=== PATIENT | male | born 1955 | race Caucasian/White ===

== ENCOUNTER 2023-12-07 10:10 | Outpatient (AMB) | payer MEDICARE, SELFPAY ==
--- NOTE | 2023-12-07 10:55 | AM.OFFWIN_ITS ---
Intake Vital Signs 12/07/23 10:56 Height 5 ft 11 in Weight 155 lb BMI 21.6 BP 118/70 Blood Pressure Location Lt brachial Position Sitting Pulse 69 Pulse Source Pulse Oximeter Temp 98.1 F Temp Source Oral Pulse Oximetry (%) 97 Oxygen Delivery Method Room Air Intake Visit Reasons: EP- Rash on both hands Intake Note: pt c/o bilateral hand rash x 3weeks. After working on [employer] pulling weeds Patient Tobacco Use Status: Never used Tobacco Allergies No Known Allergies Allergy (Verified 12/07/23 11:01) Do you need a note to return to daycare/school/sports/work: No HPI HPI Comments History of Present Illness Details Patient is a 68-year-old male complaining of bilateral rash on hands with itching. He states he was waiting a couple of weeks ago and believes he contracted poison [place]ac. He states it is very itchy and he has used a variety of things on it to try to make it feel better but nothing seems to work. His hands have gotten dry and scaly and he has several scabs from the itching. His hands are also a little bit swollen more than normal. He denies any fevers [facility] Social History Patient Tobacco Use Status: Never used Tobacco Review of Systems Const All systems reviewed & are unremarkable except as noted in HPI and below Physical Exam Vital Signs: Last Vital Signs Temp 98.1 F 12/07/23 10:56 Pulse 69 12/07/23 10:56 BP 118/70 12/07/23 10:56 Pulse Ox 97 12/07/23 10:56 Oxygen Delivery Method Room Air 12/07/23 10:56 BMI result Body Mass Index 21.6 Const General: cooperative, healthy appearing, comfortable and no acute distress Orientation/consciousness: patient oriented x3 Limitations: no limitations HEENT Head: Yes normal to inspection Eyes General: appearance normal, both eyes and all related structures Resp Effort & Inspection: normal respiratory effort and able to speak in complete sentences Skin Other: maculopapular rash with crusted lesions on bilateral hands with some nonpitting edema Neuro General: patient oriented x3 Assessment & Plan Assessment & Plan (1) Allergic dermatitis: Code(s): L23.9 - Allergic contact dermatitis, unspecified cause Plan: Sent prednisone taper to pharmacy, reviewed risks and benefits of medication, also sent hydroxyzine as needed for itching. Plan See above Medications: New prednisone On days 1&2, take 3 tablets with breakfast. On days 3&4 take 2 tablets with breakfast, on days 5&6 take 1.5 tablets with breakfast, on days 7&8 take 1 tablet with breakfast, on days 9&10 take 0.5 tablet with breakfast. 20 mg PO DAILY 16 tabs 0RF hydroxyzine HCl 10 mg PO Q6-8H PRN 7 tabs 0RF itching Coding Level of Care Code New Pt Level 3 (60931) Diagnoses Allergic dermatitis L23.9
[2023-12-07 10:56] VITALS: BP 118/70; PULSE 69; TEMP 36.7; O2SAT 97; BMI 21.6
== END 2023-12-07 11:43 | disposition home or self-care (01) ==
PROVIDERS: Visit Provider Physician Assistant
DX: L23.9 Allergic contact dermatitis, unspecified cause (principal)
CPT/HCPCS: 99203

== ENCOUNTER 2023-12-21 13:10 | Outpatient (AMB) | payer MEDICARE, SELFPAY ==
--- NOTE | 2023-12-21 13:14 | AM.OFFWIN_ITS ---
Intake Vital Signs 12/21/23 13:15 Height 5 ft 11 in Weight 156 lb BMI 21.8 BP 132/80 Blood Pressure Location Rt brachial Position Sitting Pulse 74 Pulse Source Pulse Oximeter Temp 98.4 F Temp Source Oral Pulse Oximetry (%) 97 Oxygen Delivery Method Room Air Intake Visit Reasons: EP- rash still on hands Intake Note: pt c/o rash on hands. ongoing x 1 month Patient Tobacco Use Status: Never used Tobacco Allergies No Known Allergies Allergy (Verified 12/21/23 13:15) Do you need a note to return to daycare/school/sports/work: No HPI HPI Comments History of Present Illness Details Patient is a 68-year-old male complaining of continued rash that is itchy on his hands. He states he has had the rash for about a month now. He came in to this clinic on December 06 with a similar complaint, was given a prescription for prednisone for a 10 day taper. He states he took the medication in fall in the rash was so much better while he was taking the medication but the day after he stopped taking it, it came back. He states it is not as bad as it was but it is definitely still there and it is still itchy. He states it is starting to spread up into his wrists PFSH Social History Patient Tobacco Use Status: Never used Tobacco Review of Systems Const All systems reviewed & are unremarkable except as noted in HPI and below Physical Exam Vital Signs: Last Vital Signs Temp 98.4 F 12/21/23 13:15 Pulse 74 12/21/23 13:15 BP 132/80 12/21/23 13:15 Pulse Ox 97 12/21/23 13:15 Oxygen Delivery Method Room Air 12/21/23 13:15 BMI result Body Mass Index 21.8 Const General: cooperative, healthy appearing, comfortable and no acute distress Orientation/consciousness: patient oriented x3 Limitations: no limitations HEENT Head: Yes normal to inspection Eyes General: appearance normal, both eyes and all related structures Resp Effort & Inspection: normal respiratory effort and able to speak in complete sentences Skin Other: A maculopapular rash with mostly crusted lesions on bilateral hands in a couple of spots on the bilateral wrists Neuro General: patient oriented x3 Assessment & Plan Assessment & Plan (1) Allergic dermatitis: Code(s): L23.9 - Allergic contact dermatitis, unspecified cause Plan: Sent a medium potency cream to patient's pharmacy, explained we can not do another round of prednisone. It definitely looks better than it did on December 06 but it is still lingering. Explained we do not want to use steroid creams for a very long time on his hands and recommend he stop using it after 7 days and they only use it at night before bed. Then he is going to need to transition to an [id number] strength. If it does not improve, he should follow up with his PCP or a assistant store manager. Plan See above Medications: New betamethasone valerate 0.1% 1 appl topical DAILY 15 grams 0RF Coding Level of Care Code New Pt Level 3 (88767) Diagnoses Allergic dermatitis L23.9
[2023-12-21 13:15] VITALS: BP 132/80; PULSE 74; TEMP 36.9; O2SAT 97; BMI 21.8
== END 2023-12-21 14:23 | disposition home or self-care (01) ==
PROVIDERS: Visit Provider Physician Assistant
DX: L23.9 Allergic contact dermatitis, unspecified cause (principal)
CPT/HCPCS: 99213